=== PATIENT | male | born 1960 | race Caucasian/White ===

== ENCOUNTER 2020-02-24 12:50 | Outpatient (CLI) | payer MEDICARE, MEDICAID ==
[~2020-02-24 12:50] MED LIST: ASPI-1152 PO; AZIT250T13 PO; CARV6.252 PO; DOCU-141 PO; INSU100I26 SQ; INSU100I4 SQ; LEVO25TA9 PO; LEVO750T21 PO; MYCO250C PO; PANT40TA4 PO; PRED5TAB PO; TACR1CAP2 PO; TAMS0.4C34 PO
== END 2020-02-24 23:59 | disposition home health service (06) ==
LOC: WOU 12:50
PROVIDERS: ATTEND Podiatrist Foot & Ankle Surgery
DX: E11.621 Type 2 diabetes mellitus with foot ulcer (principal); L97.413 Non-pressure chronic ulcer of right heel and midfoot with necrosis of muscle; L97.512 Non-pressure chronic ulcer of other part of right foot with fat layer exposed; L97.518 Non-pressure chronic ulcer of other part of right foot with other specified severity; T81.89XD Other complications of procedures, not elsewhere classified, subsequent encounter; E11.42 Type 2 diabetes mellitus with diabetic polyneuropathy; E11.69 Type 2 diabetes mellitus with other specified complication; M86.672 Other chronic osteomyelitis, left ankle and foot; Z89.432 Acquired absence of left foot; Z94.0 Kidney transplant status; Z79.02 Long term (current) use of antithrombotics/antiplatelets; Z79.899 Other long term (current) drug therapy
CPT/HCPCS: 11043

== ENCOUNTER 2020-03-02 12:48 | Outpatient (CLI) | payer MEDICARE, MEDICAID | END 2020-03-02 23:59 | disposition home or self-care (01) | LOC: WOU 12:48 | PROVIDERS: ATTEND Podiatrist Foot & Ankle Surgery | DX: E11.621 Type 2 diabetes mellitus with foot ulcer (principal); L97.512 Non-pressure chronic ulcer of other part of right foot with fat layer exposed; L97.513 Non-pressure chronic ulcer of other part of right foot with necrosis of muscle; L97.413 Non-pressure chronic ulcer of right heel and midfoot with necrosis of muscle; L97.518 Non-pressure chronic ulcer of other part of right foot with other specified severity; T81.89XA Other complications of procedures, not elsewhere classified, initial encounter; E11.42 Type 2 diabetes mellitus with diabetic polyneuropathy; E11.69 Type 2 diabetes mellitus with other specified complication; M86.672 Other chronic osteomyelitis, left ankle and foot; Z94.0 Kidney transplant status; Z89.432 Acquired absence of left foot; Z79.02 Long term (current) use of antithrombotics/antiplatelets | CPT/HCPCS: 11043; 11046; G0463 ==

== ENCOUNTER 2020-03-07 08:28 | Outpatient (CLI) | payer MEDICARE, MEDICAID | END 2020-03-07 23:59 | disposition home or self-care (01) | LOC: RAD 08:28 | PROVIDERS: ATTEND Specialist | DX: R05 Cough (principal); I51.7 Cardiomegaly; I70.0 Atherosclerosis of aorta | CPT/HCPCS: 71045-TC ==

== ENCOUNTER 2020-03-08 12:10 | Outpatient (CLI) | payer MEDICARE, MEDICAID | END 2020-03-08 23:59 | disposition home health service (06) | LOC: WOU 12:10 | PROVIDERS: ATTEND Podiatrist Foot & Ankle Surgery | DX: E11.621 Type 2 diabetes mellitus with foot ulcer (principal); L97.512 Non-pressure chronic ulcer of other part of right foot with fat layer exposed; L97.513 Non-pressure chronic ulcer of other part of right foot with necrosis of muscle; L97.518 Non-pressure chronic ulcer of other part of right foot with other specified severity; L97.413 Non-pressure chronic ulcer of right heel and midfoot with necrosis of muscle; T81.89XA Other complications of procedures, not elsewhere classified, initial encounter; E11.69 Type 2 diabetes mellitus with other specified complication; M86.672 Other chronic osteomyelitis, left ankle and foot; Z89.432 Acquired absence of left foot; Z79.02 Long term (current) use of antithrombotics/antiplatelets; Z79.899 Other long term (current) drug therapy; Z94.0 Kidney transplant status | CPT/HCPCS: 11044; 11047; G0277 ==

== ENCOUNTER 2020-03-16 08:57 | Emergency (ER) | payer MEDICARE, OTHER ==
[~2020-03-16] VITALS: Ht 162.6 cm; Wt 56.2 kg
--- NOTE | 2020-03-16 09:00 | NUR ---
PT SENT FROM WOUND CARE FOR HYPERTENSION EVAL. PT DENIES CHEST PAIN OR ANY DISCOMFORT. PT PLACED ON MONITOR. NOTED HYPERTENSION. AWAITING MD GROVE.
--- NOTE | 2020-03-16 09:14 | NUR ---
DR MORRISSEY AT BEDSIDE FOR EVAL.
--- NOTE | 2020-03-16 09:27 | NUR ---
Manjeet perera in [facility] - 03/16/20 at [address] MORRISSEY AT [facility].
--- NOTE | 2020-03-16 09:27 | NUR ---
IV LINE STARTED BLOOD DRAWN AND SENT TO LAB.
[2020-03-16] MEDS ORDERED: hydrALAZINE HCL IV 20 MG VIAL IV ONE (09:30)
[2020-03-16 09:32] LABS: BASOPHILS # (AUTO) 0.1 /CMM (0.0-0.2); BASOPHILS % (AUTO) 0.7 % (0.0-2.0); EOSINOPHILS % (AUTO) 0.5 % (0.0-6.0); HEMATOCRIT 42 % (39-51); HEMOGLOBIN 13.9 g/dL (13.5-17.5); LYMPHOCYTES % (AUTO) 13.3 % (20.0-44.0); MEAN CORPUSCULAR HGB CONC 33 g/dl (31.0-36.0); MEAN CORPUSCULAR VOLUME 98 fL (80-96); MONOCYTES # (AUTO) 0.6 /CMM (0.1-1.30); MONOCYTES % (AUTO) 7.7 % (2.0-12.0); NEUTROPHILS # (AUTO) 5.7 /CMM (1.8-8.9); NEUTROPHILS % (AUTO) 77.8 % (43.0-81.0); PLATELET COUNT (AUTO) 208 /CMM (150-450); RED BLOOD CELL COUNT(AUTO) 4.32 MIL/uL (4.5-6.0); WHITE BLOOD COUNT (AUTO) 7.4 K/uL (4.3-11.0)
[2020-03-16] MEDS ORDERED: hydrALAZINE HCL IV 20 MG VIAL ONE (09:35)
--- NOTE | 2020-03-16 09:36 | NUR ---
RADIOLOGY AT BEDSIDE FOR CHEST XRAY.
[2020-03-16 09:41] LABS: CALCIUM, SERUM 9.9 mg/dL (8.5-10.1); CARBON DIOXIDE 29 mmol/L (21-32); CHLORIDE 101 mmol/L (98-107); GLUCOSE 171 mg/dL (74-106); POTASSIUM 5.2 mmol/L (3.5-5.1); SODIUM SERUM 136 mmol/L (136-145); UREA NITROGEN, BLOOD 24 mg/dL (7-18)
[2020-03-16 09:47] LABS: ALANINE AMINOTRANSFERASE 18 U/L (12-78); ALBUMIN 3.1 g/dL (3.4-5.0); ALKALINE PHOSPHATASE 81 U/L (46-116); ASPARTATE AMINOTRANSFERASE 27 U/L (15-37); BILIRUBIN,DIRECT 0.1 mg/dL (0.0-0.2); BILIRUBIN,TOTAL 0.4 mg/dL (0.2-1.0); TOTAL PROTEIN, SERUM 7.2 g/dL (6.4-8.2)
[2020-03-16] MEDS ORDERED: METOPROLOL TARTRATE INJ 5 MG/5 ML AMPUL ONE (10:13)
[2020-03-16] MEDS ORDERED: METOPROLOL TARTRATE INJ 5 MG/5 ML AMPUL IV ONE (10:30)
--- NOTE | 2020-03-16 11:13 | NUR ---
Patient discharged to home in stable condition. Written and verbal after care instructions given. Patient verbalizes understanding of instruction.IV removed. Catheter intact and site benign. Pressure and 4x4 applied to site. No bleeding noted.
[2020-03-16 11:14] VITALS: BP 163/96
== END 2020-03-16 11:14 | disposition home or self-care (01) ==
LOC: ER 09:03
DX: E11.621 Type 2 diabetes mellitus with foot ulcer (principal); I10 Essential (primary) hypertension; E78.5 Hyperlipidemia, unspecified; Z94.0 Kidney transplant status; Z95.1 Presence of aortocoronary bypass graft; Z79.4 Long term (current) use of insulin; Z79.82 Long term (current) use of aspirin; Z79.899 Other long term (current) drug therapy
CPT/HCPCS: 36415; 71045; 80048; 80076; 84484; 85025; 96374; 96375; 99285; J0360; J3490

== ENCOUNTER 2020-03-18 11:25 | Outpatient (CLI) | payer MEDICARE, MEDICAID | END 2020-03-18 23:59 | disposition home health service (06) | LOC: WOU 11:25 | PROVIDERS: ATTEND Podiatrist Foot & Ankle Surgery | DX: E11.621 Type 2 diabetes mellitus with foot ulcer (principal); L97.826 Non-pressure chronic ulcer of other part of left lower leg with bone involvement without evidence of necrosis; L97.413 Non-pressure chronic ulcer of right heel and midfoot with necrosis of muscle; L97.515 Non-pressure chronic ulcer of other part of right foot with muscle involvement without evidence of necrosis; L97.513 Non-pressure chronic ulcer of other part of right foot with necrosis of muscle; E11.69 Type 2 diabetes mellitus with other specified complication; E11.42 Type 2 diabetes mellitus with diabetic polyneuropathy; M86.672 Other chronic osteomyelitis, left ankle and foot; Z94.0 Kidney transplant status | CPT/HCPCS: 11043 ==

== ENCOUNTER 2020-03-23 13:55 | Outpatient (CLI) | payer MEDICARE, MEDICAID | END 2020-03-23 23:59 | disposition home or self-care (01) | LOC: WOU 13:55 | PROVIDERS: ATTEND Nurse Practitioner Acute Care | DX: Z45.2 Encounter for adjustment and management of vascular access device (principal); M86.9 Osteomyelitis, unspecified | CPT/HCPCS: 36569; C1751 ==

== ENCOUNTER 2020-03-25 11:45 | Outpatient (CLI) | payer MEDICARE, MEDICAID | END 2020-03-25 23:59 | disposition home health service (06) | LOC: WOU 11:45 | PROVIDERS: ATTEND Podiatrist Foot & Ankle Surgery | DX: E11.621 Type 2 diabetes mellitus with foot ulcer (principal); L97.426 Non-pressure chronic ulcer of left heel and midfoot with bone involvement without evidence of necrosis; L97.413 Non-pressure chronic ulcer of right heel and midfoot with necrosis of muscle; L97.515 Non-pressure chronic ulcer of other part of right foot with muscle involvement without evidence of necrosis; L97.513 Non-pressure chronic ulcer of other part of right foot with necrosis of muscle; E11.42 Type 2 diabetes mellitus with diabetic polyneuropathy; E11.69 Type 2 diabetes mellitus with other specified complication; M86.672 Other chronic osteomyelitis, left ankle and foot; Z94.0 Kidney transplant status; Z79.02 Long term (current) use of antithrombotics/antiplatelets; Z79.899 Other long term (current) drug therapy | CPT/HCPCS: 11043 ==

== ENCOUNTER 2020-04-01 10:35 | Outpatient (CLI) | payer MEDICARE, MEDICAID | END 2020-04-01 23:59 | disposition home health service (06) | LOC: WOU 10:35 | PROVIDERS: ATTEND Podiatrist Foot & Ankle Surgery | DX: E11.621 Type 2 diabetes mellitus with foot ulcer (principal); L97.426 Non-pressure chronic ulcer of left heel and midfoot with bone involvement without evidence of necrosis; L97.413 Non-pressure chronic ulcer of right heel and midfoot with necrosis of muscle; L97.515 Non-pressure chronic ulcer of other part of right foot with muscle involvement without evidence of necrosis; L97.513 Non-pressure chronic ulcer of other part of right foot with necrosis of muscle; E11.42 Type 2 diabetes mellitus with diabetic polyneuropathy; E11.69 Type 2 diabetes mellitus with other specified complication; M86.672 Other chronic osteomyelitis, left ankle and foot; Z89.432 Acquired absence of left foot; Z94.0 Kidney transplant status; Z79.899 Other long term (current) drug therapy; Z79.02 Long term (current) use of antithrombotics/antiplatelets | CPT/HCPCS: 11042; 11043 ==

== ENCOUNTER 2020-04-08 10:50 | Outpatient (CLI) | payer MEDICARE, MEDICAID ==
[~2020-04-08 10:50] MED LIST changes: -ASPI-1152 PO; +ASPI-1420 PO
[2020-04-08] MEDS ORDERED: COLLAGENASE 5 GM TUBE UD TP ONE (11:40)
[2020-04-08] MEDS ORDERED: GENTAMICIN 0.1% CREAM 15 GM TUBE ONE (11:40)
== END 2020-04-08 23:59 | disposition home health service (06) ==
LOC: WOU 10:50
PROVIDERS: ATTEND Podiatrist Foot & Ankle Surgery
DX: E11.621 Type 2 diabetes mellitus with foot ulcer (principal); L97.426 Non-pressure chronic ulcer of left heel and midfoot with bone involvement without evidence of necrosis; L97.413 Non-pressure chronic ulcer of right heel and midfoot with necrosis of muscle; L97.515 Non-pressure chronic ulcer of other part of right foot with muscle involvement without evidence of necrosis; L97.513 Non-pressure chronic ulcer of other part of right foot with necrosis of muscle; E11.69 Type 2 diabetes mellitus with other specified complication; M86.672 Other chronic osteomyelitis, left ankle and foot; M86.671 Other chronic osteomyelitis, right ankle and foot; E11.649 Type 2 diabetes mellitus with hypoglycemia without coma; Z94.0 Kidney transplant status; Z89.432 Acquired absence of left foot; Z79.02 Long term (current) use of antithrombotics/antiplatelets
CPT/HCPCS: 11043

== ENCOUNTER 2020-04-15 09:50 | Outpatient (CLI) | payer MEDICARE, MEDICAID ==
[~2020-04-15 09:50] MED LIST changes: -PANT40TA4 PO; +PANT40TA49 PO
[2020-04-15] MEDS ORDERED: GENTAMICIN 0.1% CREAM 15 GM TUBE ONE (10:44)
[2020-06-09] MEDS ORDERED: AMLO5TAB4 PO (09:32)
[2020-06-09] MEDS ORDERED: HYDR-4077 PO (09:32)
== END 2020-04-15 23:59 | disposition home health service (06) ==
LOC: WOU 09:50
PROVIDERS: ATTEND Podiatrist Foot & Ankle Surgery
DX: E11.621 Type 2 diabetes mellitus with foot ulcer (principal); L97.426 Non-pressure chronic ulcer of left heel and midfoot with bone involvement without evidence of necrosis; L97.412 Non-pressure chronic ulcer of right heel and midfoot with fat layer exposed; L97.512 Non-pressure chronic ulcer of other part of right foot with fat layer exposed; L97.516 Non-pressure chronic ulcer of other part of right foot with bone involvement without evidence of necrosis; E11.69 Type 2 diabetes mellitus with other specified complication; M86.672 Other chronic osteomyelitis, left ankle and foot; Z94.0 Kidney transplant status; Z89.432 Acquired absence of left foot; Z79.899 Other long term (current) drug therapy
CPT/HCPCS: 11042; 11044; 11047

== ENCOUNTER 2020-04-22 10:40 | Outpatient (CLI) | payer MEDICARE, MEDICAID ==
[~2020-04-22 10:40] MED LIST changes: +PANT40TA4 PO; -PANT40TA49 PO
[2020-04-22] MEDS ORDERED: GENTAMICIN 0.1% CREAM 15 GM TUBE ONE ×2 (11:38→11:39)
== END 2020-04-22 23:59 | disposition home health service (06) ==
LOC: WOU 10:40
PROVIDERS: ATTEND Podiatrist Foot & Ankle Surgery
DX: E11.621 Type 2 diabetes mellitus with foot ulcer (principal); I96 Gangrene, not elsewhere classified; L97.426 Non-pressure chronic ulcer of left heel and midfoot with bone involvement without evidence of necrosis; L97.415 Non-pressure chronic ulcer of right heel and midfoot with muscle involvement without evidence of necrosis; L97.515 Non-pressure chronic ulcer of other part of right foot with muscle involvement without evidence of necrosis; L97.516 Non-pressure chronic ulcer of other part of right foot with bone involvement without evidence of necrosis; E11.42 Type 2 diabetes mellitus with diabetic polyneuropathy; E11.69 Type 2 diabetes mellitus with other specified complication; M86.672 Other chronic osteomyelitis, left ankle and foot; Z94.0 Kidney transplant status; Z89.432 Acquired absence of left foot; Z79.02 Long term (current) use of antithrombotics/antiplatelets
CPT/HCPCS: 11043

== ENCOUNTER 2020-04-29 10:40 | Outpatient (CLI) | payer MEDICARE, MEDICAID ==
[2020-04-29] MEDS ORDERED: GENTAMICIN 0.1% CREAM 15 GM TUBE ONE (11:38)
== END 2020-04-29 23:59 | disposition home health service (06) ==
LOC: WOU 10:40
PROVIDERS: ATTEND Podiatrist Foot & Ankle Surgery
DX: E11.621 Type 2 diabetes mellitus with foot ulcer (principal); L97.426 Non-pressure chronic ulcer of left heel and midfoot with bone involvement without evidence of necrosis; L97.415 Non-pressure chronic ulcer of right heel and midfoot with muscle involvement without evidence of necrosis; L97.515 Non-pressure chronic ulcer of other part of right foot with muscle involvement without evidence of necrosis; L97.516 Non-pressure chronic ulcer of other part of right foot with bone involvement without evidence of necrosis; E11.42 Type 2 diabetes mellitus with diabetic polyneuropathy; E11.69 Type 2 diabetes mellitus with other specified complication; M86.672 Other chronic osteomyelitis, left ankle and foot; E11.649 Type 2 diabetes mellitus with hypoglycemia without coma; Z94.0 Kidney transplant status; Z89.432 Acquired absence of left foot; Z79.02 Long term (current) use of antithrombotics/antiplatelets
CPT/HCPCS: 11043

== ENCOUNTER 2020-05-06 10:17 | Outpatient (CLI) | payer MEDICARE, MEDICAID ==
[2020-05-06] MEDS ORDERED: LIDOCAINE SOLN 4% 50 ML BOTTLE ONE (10:44)
[2020-05-06] MEDS ORDERED: GENTAMICIN 0.1% CREAM 15 GM TUBE ONE (11:26)
== END 2020-05-06 23:59 | disposition home health service (06) ==
LOC: WOU 10:17
PROVIDERS: ATTEND Podiatrist Foot & Ankle Surgery
DX: E11.621 Type 2 diabetes mellitus with foot ulcer (principal); L97.426 Non-pressure chronic ulcer of left heel and midfoot with bone involvement without evidence of necrosis; L97.515 Non-pressure chronic ulcer of other part of right foot with muscle involvement without evidence of necrosis; L97.516 Non-pressure chronic ulcer of other part of right foot with bone involvement without evidence of necrosis; E11.42 Type 2 diabetes mellitus with diabetic polyneuropathy; E11.69 Type 2 diabetes mellitus with other specified complication; M86.672 Other chronic osteomyelitis, left ankle and foot; Z94.0 Kidney transplant status; Z79.02 Long term (current) use of antithrombotics/antiplatelets
CPT/HCPCS: 11043

== ENCOUNTER 2020-05-13 08:50 | Outpatient (CLI) | payer MEDICARE, MEDICAID ==
[2020-05-13] MEDS ORDERED: GENTAMICIN 0.1% CREAM 15 GM TUBE ONE (09:19)
== END 2020-05-13 23:59 | disposition home health service (06) ==
LOC: WOU 08:50
PROVIDERS: ATTEND Podiatrist Foot & Ankle Surgery
DX: E11.621 Type 2 diabetes mellitus with foot ulcer (principal); L97.426 Non-pressure chronic ulcer of left heel and midfoot with bone involvement without evidence of necrosis; L97.415 Non-pressure chronic ulcer of right heel and midfoot with muscle involvement without evidence of necrosis; L97.515 Non-pressure chronic ulcer of other part of right foot with muscle involvement without evidence of necrosis; L97.516 Non-pressure chronic ulcer of other part of right foot with bone involvement without evidence of necrosis; E11.42 Type 2 diabetes mellitus with diabetic polyneuropathy; E11.69 Type 2 diabetes mellitus with other specified complication; M86.672 Other chronic osteomyelitis, left ankle and foot; Z94.0 Kidney transplant status; Z79.02 Long term (current) use of antithrombotics/antiplatelets; Z79.899 Other long term (current) drug therapy
CPT/HCPCS: 11043

== ENCOUNTER 2020-05-20 09:25 | Outpatient (CLI) | payer MEDICARE, MEDICAID ==
[~2020-05-20 09:25] MED LIST changes: -PANT40TA4 PO; +PANT40TA49 PO
[2020-05-20] MEDS ORDERED: LIDOCAINE SOLN 4% 50 ML BOTTLE ONE (09:38)
== END 2020-05-20 23:59 | disposition home health service (06) ==
LOC: WOU 09:25
PROVIDERS: ATTEND Podiatrist Foot & Ankle Surgery
DX: E11.621 Type 2 diabetes mellitus with foot ulcer (principal); L97.426 Non-pressure chronic ulcer of left heel and midfoot with bone involvement without evidence of necrosis; L97.415 Non-pressure chronic ulcer of right heel and midfoot with muscle involvement without evidence of necrosis; L97.512 Non-pressure chronic ulcer of other part of right foot with fat layer exposed; L97.515 Non-pressure chronic ulcer of other part of right foot with muscle involvement without evidence of necrosis; L97.516 Non-pressure chronic ulcer of other part of right foot with bone involvement without evidence of necrosis; E11.69 Type 2 diabetes mellitus with other specified complication; Z89.432 Acquired absence of left foot; M86.672 Other chronic osteomyelitis, left ankle and foot; Z94.0 Kidney transplant status; Z79.02 Long term (current) use of antithrombotics/antiplatelets
CPT/HCPCS: 11042; 11043; 11044

== ENCOUNTER 2020-06-01 09:00 | Outpatient (CLI) | payer MEDICARE, MEDICAID | END 2020-06-01 23:59 | disposition home or self-care (01) | DX: Z01.818 Encounter for other preprocedural examination (principal); Z20.828 Contact with and (suspected) exposure to other viral communicable diseases; E11.52 Type 2 diabetes mellitus with diabetic peripheral angiopathy with gangrene; E11.69 Type 2 diabetes mellitus with other specified complication; I96 Gangrene, not elsewhere classified; M86.672 Other chronic osteomyelitis, left ankle and foot | CPT/HCPCS: 36415; 80053; 83036; 84134; 85025; 85730; 93005; C9803; U0003 ==

== ENCOUNTER 2020-06-03 09:30 | Outpatient (CLI) | payer MEDICARE, MEDICAID ==
[2020-06-03] MEDS ORDERED: LIDOCAINE SOLN 4% 50 ML BOTTLE ONE (09:47)
[2020-06-03] MEDS ORDERED: MUPIROCIN 2% CREAM 15 GM TUBE TP ONE (09:57)
[2020-06-03] MEDS ORDERED: GENTAMICIN 0.1% CREAM 15 GM TUBE ONE (09:57)
[2020-06-09] MEDS ORDERED: HYDR-4077 PO (09:32)
[2020-06-09] MEDS ORDERED: AMLO5TAB4 PO (09:32)
== END 2020-06-03 23:59 | disposition home health service (06) ==
LOC: WOU 09:30
PROVIDERS: ATTEND Podiatrist Foot & Ankle Surgery
DX: E11.621 Type 2 diabetes mellitus with foot ulcer (principal); L97.426 Non-pressure chronic ulcer of left heel and midfoot with bone involvement without evidence of necrosis; L97.415 Non-pressure chronic ulcer of right heel and midfoot with muscle involvement without evidence of necrosis; L97.515 Non-pressure chronic ulcer of other part of right foot with muscle involvement without evidence of necrosis; L97.516 Non-pressure chronic ulcer of other part of right foot with bone involvement without evidence of necrosis; E11.42 Type 2 diabetes mellitus with diabetic polyneuropathy; E11.69 Type 2 diabetes mellitus with other specified complication; M86.672 Other chronic osteomyelitis, left ankle and foot; Z94.0 Kidney transplant status; Z89.432 Acquired absence of left foot; Z79.02 Long term (current) use of antithrombotics/antiplatelets
CPT/HCPCS: 11043

== ENCOUNTER 2020-06-07 05:59 | Inpatient (IN) | payer MEDICARE, OTHER ==
[~2020-06-07] VITALS: Ht 162.6 cm; Wt 59.0 kg
[2020-06-07] MEDS ORDERED: ANESTHESIA TRAY IN PYXIS 1 EA TRAY MC ONE (07:13)
[2020-06-07] MEDS ORDERED: BACITRACIN 50000 UNITS/VIAL ONE (07:16)
[2020-06-07] MEDS ORDERED: LIDOCAINE 1% INJ 50 ML MDV IJ ONE (07:16)
[2020-06-07] MEDS ORDERED: BUPIVACAINE 0.5 % PF 150 MG/30 ML VIAL ONE (07:16)
--- NOTE | 2020-06-07 08:35 | NUR ---
MS RN ADMITTING NOTE PATIENT CAME BY MOHIT FROM OR. PATIENT TRANSFERRED TO OUR BED. PATIENT IN BED RESTING COMFORTABLY. PATIENT IN NO ACUTE DISTRESS. NO SOB NOTED. PATIENT BREATHING IS EVEN AND UNLABORED. PATIENT SYSTOLIC BP IN 170S-180S. INFORMED MARIS ROMMEL. PATIENT STATES NO PAIN AT THIS TIME. PATIENT BED IS LOCKED AND IN LOWEST POSITION. CALL LIGHT WITHIN REACH. INFORMED MARIS ROMMEL OF PATIENTS ARRIVAL AND PER MD WILL FOLLOW UP WITH ORDERS. WILL CONTINUE TO MONITOR.
[2020-06-07 09:00] VITALS: BP 195/112
[2020-06-07] MEDS ORDERED: INSU3INS9 SQ (09:02)
[2020-06-07] MEDS ORDERED: CLOP75TA15 PO (09:02)
[2020-06-07] MEDS ORDERED: ONDANSETRON HCL/PF 4 MG/2 ML VIAL IVP PRN (10:00)
[2020-06-07] MEDS ORDERED: ACETAMINOPHEN 325 MG TABLET PO PRN (10:00)
[2020-06-07] MEDS ORDERED: Z GUARD REMEDY 2 OZ OINT TP PRN (10:00)
[2020-06-07] MEDS ORDERED: hydrALAZINE HCL 25 MG TABLET PO PRN (10:00)
[2020-06-07] MEDS ORDERED: DOCUSATE SODIUM 100 MG CAPSULE PO PRN (10:00)
[2020-06-07] MEDS ORDERED: AMLODIPINE BESYLATE 5 MG TABLET PO SCH (10:00)
--- NOTE | 2020-06-07 10:05 | NUR ---
MS RN NOTE PATIENT SEEN AND EVALUATED BY MARIS CARNEY. PER MARIS BACON ORDER FOR MILD SLIDING SCALE ACHS. AND MARIS IS AWARE THAT DR. WALKER IS TO SEE PATIENT FOR SURGERY ONCE CLEARED AND PER MARIS POSSIBLE SURGERY TOMORROW.
[2020-06-07] MEDS: AMLODIPINE BESYLATE 10 MG TABLET PO SCH (10:19)
[2020-06-07] MEDS ORDERED: DEXTROSE 50%-WATER 50 ML DISP.SYRIN IV PRN (10:30)
--- NOTE | 2020-06-07 11:00 | NUR ---
MS RN NOTE PER MARIS HOLLOWAY ROUNDING M[employer]IM[employer] TECHNICIAN FOR PATIENT.
[2020-06-07] MEDS: BLOOD SUGAR DIAGNOSTIC 1 EACH STRIP IN SCH ×3 (12:14→22:25)
[2020-06-07] MEDS: INSULIN REGULAR, HUMAN 100 UNIT/ML 3 ML VIAL SQ PRN ×2 (12:16→22:41)
--- NOTE | 2020-06-07 12:19 | NUR ---
MS RN NOTE PATIENT BLOOD SUGAR 156. HELD REGULAR INSULIN 2 UNITS PER SLIDING SCALE PRN DUE TO PATIENT RECEIVING INSULIN HUMALOG 5 UNITS SCHEDULED AT 1200.
[2020-06-07] MEDS: INSULIN LISPRO/ASPART 100 UNIT/ML CARTRIDGE SQ SCH ×2 (12:22→16:58)
[2020-06-07] MEDS: hydrALAZINE HCL 50 MG TABLET PO SCH ×2 (12:23→16:37)
[2020-06-07] MEDS: NITROGLYCERIN 30 GM TUBE TP SCH ×2 (12:59→22:50)
[2020-06-07 16:00] VITALS: BP 109/73
[2020-06-07] MEDS: MYCOPHENOLATE MOFETIL 250 MG CAPSULE PO SCH (16:38)
[2020-06-07] MEDS: predniSONE 5 MG TABLET PO SCH (16:38)
[2020-06-07] MEDS: TACROLIMUS ANHYDROUS 0.5 MG CAPSULE PO SCH (16:38)
--- NOTE | 2020-06-07 16:58 | NUR ---
MS RN NOTE PATIENT BLOOD SUGAR 118. NO REGULAR INSULIN GIVEN PER PROTOCOL. PATIENT REFUSED 1730 5 UNITS INSULIN HUMALOG/NOVALOG.
[2020-06-07] MEDS ORDERED: TACROLIMUS ANHYDROUS 1 MG CAPSULE PO SCH (17:00)
--- NOTE | 2020-06-07 18:40 | NUR ---
MS RN CLOSING NOTE PATIENT IN BED RESTING COMFORTABLY. PATIENT IN NO ACUTE DISTRESS. NO SOB NOTED. PATIENT BREATHING IS EVEN AND UNLABORED. PATIENT STATES NO PAIN AT THIS TIME. PATIENT BED ALARM IS ON. PATIENT SAFETY PRECAUTIONS IN PLACE. PATIENT AWARE NPO AFTER MIDNIGHT IN CASE POSSIBLE DEBRIDEMENT IN OR TOMORROW. PATIENT BED IS LOCKED AND IN LOWEST POSITION. CALL LIGHT WITHIN REACH. WILL ENDORSE CARE TO PM SHIFT FOR TAMRA.
--- NOTE | 2020-06-07 19:45 | NUR ---
MSRN FULLY AWAKE, SUKHWINDER LOWER EXT DRESSINGS CHANGED. NO DRAINAGE SEEN.. PATIENT FOR POSSIBLE DEBRIDEMENT BY DR THOMSON OF SUKHWINDER LOWER EXT WOUNDS. TAMAZIGHT SPEAKING LIMITED JAPANESE, ALL NEEDS ATTENDED. DENIES ANY PAIN OR FURTHER DISCOMFORTS. BOTH LOWER EXT ELEVATED ON PILLOWS PER PATIENTS' COMFORT. CONTINUED.
[2020-06-07 20:00] VITALS: BP_SYST 104; BP_SYST 134; BP_DIAS 68; BP_DIAS 85
--- NOTE | 2020-06-07 21:30 | NUR ---
MSRN LOWER EXT DRESSING DONE. DENIES PAIN.
[2020-06-07] MEDS: CARVEDILOL 6.25 MG TABLET PO SCH (22:26)
--- NOTE | 2020-06-07 22:40 | NUR ---
MSRN BS 225 COVERAGE PER SLIDING SCALE GIVEN. SNACKS PROVIDED. NO OTHER NEEDS MADE.
[2020-06-08] MEDS: INSULIN REGULAR, HUMAN 100 UNIT/ML 3 ML VIAL SQ PRN ×4 (06:44→21:39)
--- NOTE | 2020-06-08 06:45 | NUR ---
MSRN BS 205. INSULIN ADMINISTERED ORDERED. PT NOT ON SCHED FOR DEBRIDEMENT IN OR. WILL FOLLOW UP. DIET RESUMED. TYLENOL PO GIVEN FOR LOWER BACK PAIN.
[2020-06-08] MEDS: INSULIN LISPRO/ASPART 100 UNIT/ML CARTRIDGE SQ SCH ×3 (06:47→17:55)
[2020-06-08] MEDS: BLOOD SUGAR DIAGNOSTIC 1 EACH STRIP IN SCH ×4 (06:49→21:37)
[2020-06-08] MEDS: LEVOTHYROXINE SODIUM 25 MCG TABLET PO SCH (06:54)
[2020-06-08] MEDS: PANTOPRAZOLE 40 MG TABLET.DR PO SCH (06:54)
[2020-06-08 06:59] VITALS: BP 130/82
[2020-06-08 07:52] LABS: BASOPHILS % (AUTO) 0.4 % (0.0-2.0); EOSINOPHILS % (AUTO) 0.4 % (0.0-6.0); HEMATOCRIT 44 % (39-51); HEMOGLOBIN 14.6 g/dL (13.5-17.5); LYMPHOCYTES # (AUTO) 0.8 /CMM (0.8-4.8); MEAN CORPUSCULAR HGB CONC 33 g/dl (31.0-36.0); MEAN CORPUSCULAR VOLUME 95 fL (80-96); MONOCYTES # (AUTO) 0.6 /CMM (0.1-1.30); MONOCYTES % (AUTO) 8.3 % (2.0-12.0); NEUTROPHILS # (AUTO) 5.5 /CMM (1.8-8.9); NEUTROPHILS % (AUTO) 78.9 % (43.0-81.0); PLATELET COUNT (AUTO) 220 /CMM (150-450); RED BLOOD CELL COUNT(AUTO) 4.68 MIL/uL (4.5-6.0); WHITE BLOOD COUNT (AUTO) 6.9 K/uL (4.3-11.0)
[2020-06-08 08:00] VITALS: BP 104/65
[2020-06-08] MEDS: ASPIRIN EC 81 MG TABLET.DR PO SCH (08:23)
[2020-06-08] MEDS: TACROLIMUS ANHYDROUS 0.5 MG CAPSULE PO SCH ×2 (08:23→17:41)
[2020-06-08] MEDS: MYCOPHENOLATE MOFETIL 250 MG CAPSULE PO SCH ×2 (08:23→17:40)
[2020-06-08] MEDS: CARVEDILOL 6.25 MG TABLET PO SCH ×2 (08:24→21:38)
[2020-06-08] MEDS: AMLODIPINE BESYLATE 10 MG TABLET PO SCH (08:24)
[2020-06-08] MEDS: hydrALAZINE HCL 50 MG TABLET PO SCH ×3 (08:24→17:00)
[2020-06-08] MEDS: predniSONE 5 MG TABLET PO SCH ×2 (08:26→17:40)
[2020-06-08] MEDS: INSULIN GLARGINE, 100 UNIT/ML CARTRIDGE SQ SCH (08:28)
[2020-06-08] MEDS: NITROGLYCERIN 30 GM TUBE TP SCH ×2 (08:30→21:40)
[2020-06-08 09:01] LABS: CALCIUM, SERUM 9.3 mg/dL (8.5-10.1); CREATININE 1.1 mg/dL (0.6-1.3); MAGNESIUM 2.1 mg/dL (1.8-2.4); PHOSPHORUS 2.9 mg/dL (2.5-4.9); POTASSIUM 4.4 mmol/L (3.5-5.1)
[2020-06-08 16:00] VITALS: BP 107/71
[2020-06-08] MEDS ORDERED: SILVER SULFADIAZINE CREAM 25 GM TUBE TP SCH (17:00)
--- NOTE | 2020-06-08 18:46 | NUR ---
rn notes patient on room air, no sob noted, only speaks central african. blood sugar checked and insulin coverage given. Plan is to have surgery tomorrow. bed at the lowest setting, call light within reach, side rails up x2.
[2020-06-08 19:00] VITALS: BP 110/62
--- NOTE | 2020-06-08 19:26 | NUR ---
MS/RN OPENING NOTES: RECEIVED PT IN BED, A/OX3-4. VERBALLY RESPONSIVE AND ABLE TO MAKE NEEDS KNOWN. ETHIOPIAN SPEAKING BUT JOSE D TO UNDERSTAND MINIMAL MARTIN[place]QUAIS. NO SOB NOTED, SATURATING WELL ON ROOM AIR. NO C/O PAIN AT THIS TIME. PT HAS A SURGERY SCHEDULED TOMORROW MORNING WITH DR. GAMEZ: RIGHT FOOT HALLUX AMPUTATION. LEFT FOOT DEBRIDEMENT AND APPLICATION OF ALLOGRAFT. IV ON THE LEFT HAND #20G INTACT AND PATENT, FLUSHING WELL, SL. WILL BE NPO STARTING MIDNIGHT. SAFETY MEASURES IN PLACE. BED IN LOW, LOCKED POSITION WITH SR UPX2. CALL LIGHT WITHIN REACH. WILL CONTINUE TO MONITOR ACCORDINGLY.
[2020-06-08 20:00] VITALS: BP 110/62
[2020-06-09] MEDS: BLOOD SUGAR DIAGNOSTIC 1 EACH STRIP IN SCH (06:38)
[2020-06-09] MEDS: INSULIN REGULAR, HUMAN 100 UNIT/ML 3 ML VIAL SQ PRN (06:38)
--- NOTE | 2020-06-09 06:56 | NUR ---
MS/RN CLOSING NOTES: PT REMAINS IN BED, A/OX3-4. VERBALLY RESPONSIVE AND ABLE TO MAKE NEEDS KNOWN. NO SOB NOTED, SATURATING WELL ON ROOM AIR. NO C/O PAIN AT THIS TIME. PT HAS A SURGERY SCHEDULED IN THE MORNING WITH DR. GAMEZ: RIGHT FOOT HALLUX AMPUTATION. LEFT FOOT DEBRIDEMENT AND APPLICATION OF ALLOGRAFT. CONSENTS ARE SIGNED AND IN THE CHART. PREOP CHECKLIST DONE. IV ON THE LEFT HAND #20G INTACT AND PATENT, FLUSHING WELL, SL. MAINTAINED NPO STATUS STARTING MIDNIGHT. BS CHECK AT 0600 IS 206. NO COVERAGE GIVEN SINCE PT IS NPO AND WILL BE GOING TO SURGERY. SAFETY MEASURES IN PLACE. BED IN LOW, LOCKED POSITION WITH SR UPX2. CALL LIGHT WITHIN REACH. ALL DUE MEDS GIVEN ORDERED. ALL NURSING NEEDS MET AND RENDERED. WILL ENDORSE TO DAY SHIFT FOR TAMRA.
--- NOTE | 2020-06-09 07:10 | NUR ---
MS RN NOTES ENDORSED BY EXHIBITS COORDINATOR RN, PATIENT WAS LEAVING UNIT FOR SURGERY. WILL AWAIT FOR POST-OP.
[2020-06-09] MEDS ORDERED: ANESTHESIA TRAY IN PYXIS 1 EA TRAY MC ONE (07:11)
[2020-06-09] MEDS ORDERED: BUPIVACAINE 0.5 % PF 150 MG/30 ML VIAL ONE (07:11)
[2020-06-09] MEDS ORDERED: LIDOCAINE HCL/PF 1% 30 ML SDV ONE (07:11)
[2020-06-09] MEDS ORDERED: BACITRACIN 50000 UNITS/VIAL ONE ×2 (07:12→08:05)
[2020-06-09] MEDS ORDERED: MIDAZOLAM HCL 2 MG/2ML VIAL ONE (07:18)
[2020-06-09] MEDS ORDERED: FENTANYL PF 100MCG/2ML AMPUL ONE (07:18)
[2020-06-09] MEDS: INSULIN LISPRO/ASPART 100 UNIT/ML CARTRIDGE SQ SCH (07:30)
[2020-06-09] MEDS: PANTOPRAZOLE 40 MG TABLET.DR PO SCH (07:30)
[2020-06-09] MEDS: LEVOTHYROXINE SODIUM 25 MCG TABLET PO SCH (07:30)
[2020-06-09 07:31] LABS: BASOPHILS % (AUTO) 0.3 % (0.0-2.0); CALCIUM, SERUM 9.5 mg/dL (8.5-10.1); CREATININE 1.2 mg/dL (0.6-1.3); EOSINOPHILS % (AUTO) 0.5 % (0.0-6.0); HEMATOCRIT 46 % (39-51); HEMOGLOBIN 15.4 g/dL (13.5-17.5); LYMPHOCYTES # (AUTO) 0.8 /CMM (0.8-4.8); LYMPHOCYTES % (AUTO) 12.4 % (20.0-44.0); MAGNESIUM 2.2 mg/dL (1.8-2.4); MEAN CORPUSCULAR HGB CONC 33 g/dl (31.0-36.0); MEAN CORPUSCULAR VOLUME 95 fL (80-96); MONOCYTES # (AUTO) 0.5 /CMM (0.1-1.30); MONOCYTES % (AUTO) 7.7 % (2.0-12.0); NEUTROPHILS # (AUTO) 5.3 /CMM (1.8-8.9); NEUTROPHILS % (AUTO) 79.1 % (43.0-81.0); PHOSPHORUS 2.6 mg/dL (2.5-4.9); PLATELET COUNT (AUTO) 234 /CMM (150-450); POTASSIUM 5.1 mmol/L (3.5-5.1); RED BLOOD CELL COUNT(AUTO) 4.87 MIL/uL (4.5-6.0); WHITE BLOOD COUNT (AUTO) 6.7 K/uL (4.3-11.0)
[2020-06-09] MEDS ORDERED: VANCOMYCIN 1 GM VIAL ONE (07:50)
[2020-06-09] MEDS: TACROLIMUS ANHYDROUS 0.5 MG CAPSULE PO SCH ×2 (09:00→09:49)
[2020-06-09] MEDS: INSULIN GLARGINE, 100 UNIT/ML CARTRIDGE SQ SCH (09:00)
[2020-06-09] MEDS: NITROGLYCERIN 30 GM TUBE TP SCH (09:00)
[2020-06-09] MEDS: predniSONE 5 MG TABLET PO SCH ×2 (09:00→09:48)
[2020-06-09] MEDS: MYCOPHENOLATE MOFETIL 250 MG CAPSULE PO SCH ×2 (09:00→09:48)
[2020-06-09] MEDS: CARVEDILOL 6.25 MG TABLET PO SCH (09:00)
[2020-06-09] MEDS: hydrALAZINE HCL 50 MG TABLET PO SCH ×2 (09:00→09:49)
[2020-06-09] MEDS: ASPIRIN EC 81 MG TABLET.DR PO SCH ×2 (09:00→09:48)
[2020-06-09] MEDS: AMLODIPINE BESYLATE 10 MG TABLET PO SCH ×2 (09:00→09:48)
--- NOTE | 2020-06-09 09:11 | NUR ---
MS RN NOTES PATIENT STILL IN SURGERY, MORNING MEDICATIONS NON-ADMINISTERED.
[2020-06-09] MEDS ORDERED: HYDR-4077 PO (09:32)
[2020-06-09] MEDS ORDERED: AMLO5TAB4 PO (09:32)
[2020-06-09 09:35] VITALS: BP 137/81
--- NOTE | 2020-06-09 09:35 | NUR ---
MS RN NOTES PATIENT CAME BACK FROM SURGERY, WILL CONTINUE TO MONITOR.
[2020-06-09 09:49] VITALS: BP 149/79
--- NOTE | 2020-06-09 12:30 | NUR ---
MS SENIOR TRAINING AND DEVELOPMENT REP NOTES PATIENT ALERT AND ORIENTED X 3, SINGAPOREAN SPEAKING. ON ROOM AIR WITH NO SIGNS OF RESPIRATORY DISTRESS AT THIS TIME WITH EVEN NON-LABORED BREATHING AND NO SOB NOTED. VITAL SIGNS STABLE. IV ACCESS REMOVED, CATHETER TIP INTACT AND APPLIED PRESSURE TO SITE. ID BAND REMOVED. SKIN ASSESSMENT DONE, HOWEVER BILATERAL FEET WERE COVERED DUE TO SURGERY SO NO PHOTOS DRESSING INTACT AND NO LEAKAGE PRESENT. PATIENT PRESENTS WITH NO PAIN OR DISCOMFORT AT THIS TIME. ACCOUNTED FOR ALL BELONGINGS. PATIENT LEFT UNIT VIA WHEELCHAIR AND LEFT HOSPITAL IN PRIVATE CAR. Addendum: 06/09/20 at 1338 by FAWAD VITALE RN MS SENIOR TRAINING AND DEVELOPMENT REP NOTES PATIENT ALERT AND ORIENTED X 3, SINGAPOREAN SPEAKING. ON ROOM AIR WITH NO SIGNS OF RESPIRATORY DISTRESS AT THIS TIME WITH EVEN NON-LABORED BREATHING AND NO SOB NOTED. CALLED PREFERRED PHARMACY [facility] , MEDICATIONS ARE AVAILABLE FOR PICKUP. VITAL SIGNS STABLE. IV ACCESS REMOVED, CATHETER TIP INTACT AND APPLIED PRESSURE TO SITE. ID BAND REMOVED. SKIN ASSESSMENT DONE, HOWEVER BILATERAL FEET WERE COVERED DUE TO SURGERY SO NO PHOTOS DRESSING INTACT AND NO LEAKAGE PRESENT. PATIENT PRESENTS WITH NO PAIN OR DISCOMFORT AT THIS TIME. ACCOUNTED FOR ALL BELONGINGS. PATIENT LEFT UNIT VIA WHEELCHAIR AND LEFT HOSPITAL IN PRIVATE CAR.
== END 2020-06-09 12:30 | disposition home or self-care (01) | DRG 240 ==
LOC: DS 05:59 → MED 06:00
PROVIDERS: ADMIT Nurse Practitioner Acute Care; ATTEND Nurse Practitioner Acute Care
PROC: 0Y6M0Z9 Detachment at Right Foot, Partial 1st Ray, Open Approach (ICD-10-PCS; principal; 2020-06-09)
PROC: 0KBW0ZZ Excision of Left Foot Muscle, Open Approach (ICD-10-PCS; 2020-06-09)
PROC: 0HRNXK3 Replacement of Left Foot Skin with Nonautologous Tissue Substitute, Full Thickness, External Approach (ICD-10-PCS; 2020-06-09)
DX: E11.52 Type 2 diabetes mellitus with diabetic peripheral angiopathy with gangrene (principal); I96 Gangrene, not elsewhere classified; Z94.0 Kidney transplant status; M86.672 Other chronic osteomyelitis, left ankle and foot; I10 Essential (primary) hypertension; Z95.1 Presence of aortocoronary bypass graft; I25.10 Atherosclerotic heart disease of native coronary artery without angina pectoris; I25.2 Old myocardial infarction; Z89.422 Acquired absence of other left toe(s); I16.0 Hypertensive urgency; E11.621 Type 2 diabetes mellitus with foot ulcer; E11.40 Type 2 diabetes mellitus with diabetic neuropathy, unspecified; E11.69 Type 2 diabetes mellitus with other specified complication; L97.529 Non-pressure chronic ulcer of other part of left foot with unspecified severity
CPT/HCPCS: 36415; 71045-TC; 80048-TC; 80061-TC; 82962-TC; 83735-TC; 84100-TC; 85025-TC; 85730-TC; 87070-TC; 87081-TC; 87186-TC; 93307-TC; A6209; A6403; G0378; J0690; J1815; J2250; J2704; J3010; J3370; J3490; J7507; J7512; J7517; Q4100

== ENCOUNTER 2020-06-17 08:00 | Outpatient (CLI) | payer MEDICARE, OTHER ==
[~2020-06-17 08:00] MED LIST changes: +AMLO5TAB4 PO; -AZIT250T13 PO; +CLOP75TA15 PO; +HYDR-4077 PO; -INSU100I26 SQ; +INSU3INS9 SQ; -LEVO750T21 PO; -TAMS0.4C34 PO
[2020-06-17] MEDS ORDERED: LIDOCAINE SOLN 4% 50 ML BOTTLE ONE (08:13)
[2020-06-17] MEDS ORDERED: MUPIROCIN 2% CREAM 15 GM TUBE TP ONE (08:51)
[2020-06-17] MEDS ORDERED: GENTAMICIN 0.1% CREAM 15 GM TUBE ONE (08:51)
== END 2020-06-17 23:59 | disposition home health service (06) ==
LOC: WOU 08:00
PROVIDERS: ATTEND Podiatrist Foot & Ankle Surgery
DX: E11.621 Type 2 diabetes mellitus with foot ulcer (principal); L97.426 Non-pressure chronic ulcer of left heel and midfoot with bone involvement without evidence of necrosis; L97.412 Non-pressure chronic ulcer of right heel and midfoot with fat layer exposed; L97.512 Non-pressure chronic ulcer of other part of right foot with fat layer exposed; L97.515 Non-pressure chronic ulcer of other part of right foot with muscle involvement without evidence of necrosis; E11.42 Type 2 diabetes mellitus with diabetic polyneuropathy; E11.69 Type 2 diabetes mellitus with other specified complication; M86.672 Other chronic osteomyelitis, left ankle and foot; Z94.0 Kidney transplant status; Z89.432 Acquired absence of left foot; Z89.411 Acquired absence of right great toe
CPT/HCPCS: 11042; 11043

== ENCOUNTER 2020-06-24 08:00 | Outpatient (CLI) | payer MEDICARE, OTHER | END 2020-06-24 23:59 | disposition home health service (06) | LOC: WOU 08:00 | PROVIDERS: ATTEND Podiatrist Foot & Ankle Surgery | DX: E11.621 Type 2 diabetes mellitus with foot ulcer (principal); L97.426 Non-pressure chronic ulcer of left heel and midfoot with bone involvement without evidence of necrosis; L97.412 Non-pressure chronic ulcer of right heel and midfoot with fat layer exposed; L97.512 Non-pressure chronic ulcer of other part of right foot with fat layer exposed; L97.515 Non-pressure chronic ulcer of other part of right foot with muscle involvement without evidence of necrosis; E11.69 Type 2 diabetes mellitus with other specified complication; M86.672 Other chronic osteomyelitis, left ankle and foot; E11.42 Type 2 diabetes mellitus with diabetic polyneuropathy; Z94.0 Kidney transplant status; Z89.432 Acquired absence of left foot; Z79.899 Other long term (current) drug therapy | CPT/HCPCS: 11043 ==

== ENCOUNTER 2020-07-01 08:00 | Outpatient (CLI) | payer MEDICARE, OTHER | END 2020-07-01 23:59 | disposition home health service (06) | LOC: WOU 08:00 | PROVIDERS: ATTEND Podiatrist Foot & Ankle Surgery | DX: E11.621 Type 2 diabetes mellitus with foot ulcer (principal); L97.426 Non-pressure chronic ulcer of left heel and midfoot with bone involvement without evidence of necrosis; L97.515 Non-pressure chronic ulcer of other part of right foot with muscle involvement without evidence of necrosis; L97.518 Non-pressure chronic ulcer of other part of right foot with other specified severity; E11.42 Type 2 diabetes mellitus with diabetic polyneuropathy; E11.69 Type 2 diabetes mellitus with other specified complication; M86.672 Other chronic osteomyelitis, left ankle and foot; Z89.432 Acquired absence of left foot; Z94.0 Kidney transplant status | CPT/HCPCS: 11043 ==

== ENCOUNTER 2020-07-08 08:00 | Outpatient (CLI) | payer MEDICARE, OTHER | END 2020-07-08 23:59 | disposition home health service (06) | LOC: WOU 08:00 | PROVIDERS: ATTEND Podiatrist Foot & Ankle Surgery | DX: E11.621 Type 2 diabetes mellitus with foot ulcer (principal); L97.426 Non-pressure chronic ulcer of left heel and midfoot with bone involvement without evidence of necrosis; L97.515 Non-pressure chronic ulcer of other part of right foot with muscle involvement without evidence of necrosis; E11.42 Type 2 diabetes mellitus with diabetic polyneuropathy; E11.69 Type 2 diabetes mellitus with other specified complication; M86.672 Other chronic osteomyelitis, left ankle and foot; Z94.0 Kidney transplant status; Z89.432 Acquired absence of left foot; Z79.02 Long term (current) use of antithrombotics/antiplatelets | CPT/HCPCS: 11043 ==

== ENCOUNTER 2020-07-14 09:03 | Outpatient (CLI) | payer MEDICARE, OTHER ==
[2020-07-14 10:39] LABS: BILIRUBIN,TOTAL 0.5 mg/dL (0.2-1.0); CREATININE 1.2 mg/dL (0.6-1.3); POTASSIUM 4.6 mmol/L (3.5-5.1); TOTAL PROTEIN, SERUM 6.7 g/dL (6.4-8.2)
== END 2020-07-14 23:59 | disposition home or self-care (01) ==
LOC: MSC 09:03
PROVIDERS: ATTEND Internal Medicine
DX: E11.621 Type 2 diabetes mellitus with foot ulcer (principal); L97.509 Non-pressure chronic ulcer of other part of unspecified foot with unspecified severity; Z79.4 Long term (current) use of insulin; I10 Essential (primary) hypertension; Z94.0 Kidney transplant status; Z79.899 Other long term (current) drug therapy
CPT/HCPCS: 36415; 80053; 80197; 83735; G0463

== ENCOUNTER 2020-07-15 08:00 | Outpatient (CLI) | payer MEDICARE, OTHER ==
[2020-07-15] MEDS ORDERED: LIDOCAINE SOLN 4% 50 ML BOTTLE ONE (08:36)
== END 2020-07-15 23:59 | disposition home health service (06) ==
LOC: WOU 08:00
PROVIDERS: ATTEND Podiatrist Foot & Ankle Surgery
DX: E11.621 Type 2 diabetes mellitus with foot ulcer (principal); L97.426 Non-pressure chronic ulcer of left heel and midfoot with bone involvement without evidence of necrosis; L97.515 Non-pressure chronic ulcer of other part of right foot with muscle involvement without evidence of necrosis; E11.42 Type 2 diabetes mellitus with diabetic polyneuropathy; E11.69 Type 2 diabetes mellitus with other specified complication; M86.672 Other chronic osteomyelitis, left ankle and foot; Z94.0 Kidney transplant status; Z89.432 Acquired absence of left foot; Z79.02 Long term (current) use of antithrombotics/antiplatelets
CPT/HCPCS: 11043

== ENCOUNTER 2020-07-22 08:00 | Outpatient (CLI) | payer MEDICARE, OTHER | END 2020-07-22 23:59 | disposition home health service (06) | LOC: WOU 08:00 | PROVIDERS: ATTEND Podiatrist Foot & Ankle Surgery | DX: E11.621 Type 2 diabetes mellitus with foot ulcer (principal); L97.426 Non-pressure chronic ulcer of left heel and midfoot with bone involvement without evidence of necrosis; L97.515 Non-pressure chronic ulcer of other part of right foot with muscle involvement without evidence of necrosis; E11.42 Type 2 diabetes mellitus with diabetic polyneuropathy; E11.69 Type 2 diabetes mellitus with other specified complication; M86.672 Other chronic osteomyelitis, left ankle and foot; Z79.02 Long term (current) use of antithrombotics/antiplatelets; Z94.0 Kidney transplant status; Z89.432 Acquired absence of left foot | CPT/HCPCS: 11043 ==

== ENCOUNTER 2020-08-09 08:00 | Outpatient (CLI) | payer MEDICARE, OTHER ==
[2020-08-09] MEDS ORDERED: LIDOCAINE SOLN 4% 50 ML BOTTLE ONE (08:07)
== END 2020-08-09 23:59 | disposition home health service (06) ==
LOC: WOU 08:00
PROVIDERS: ATTEND Podiatrist Foot & Ankle Surgery
DX: E11.621 Type 2 diabetes mellitus with foot ulcer (principal); L97.426 Non-pressure chronic ulcer of left heel and midfoot with bone involvement without evidence of necrosis; L97.515 Non-pressure chronic ulcer of other part of right foot with muscle involvement without evidence of necrosis; E11.42 Type 2 diabetes mellitus with diabetic polyneuropathy; E11.69 Type 2 diabetes mellitus with other specified complication; M86.672 Other chronic osteomyelitis, left ankle and foot; Z94.0 Kidney transplant status; Z79.02 Long term (current) use of antithrombotics/antiplatelets
CPT/HCPCS: 11043; 87070-TC; 87186-TC

== ENCOUNTER 2020-08-16 08:00 | Outpatient (CLI) | payer MEDICARE, OTHER ==
[2020-08-16] MEDS ORDERED: LIDOCAINE SOLN 4% 50 ML BOTTLE ONE (08:36)
[2020-08-16] MEDS ORDERED: COLLAGENASE 5 GM TUBE UD TP ONE (09:19)
== END 2020-08-16 23:59 | disposition home health service (06) ==
LOC: WOU 08:00
PROVIDERS: ATTEND Podiatrist Foot & Ankle Surgery
DX: E11.621 Type 2 diabetes mellitus with foot ulcer (principal); L97.426 Non-pressure chronic ulcer of left heel and midfoot with bone involvement without evidence of necrosis; L97.515 Non-pressure chronic ulcer of other part of right foot with muscle involvement without evidence of necrosis; E11.42 Type 2 diabetes mellitus with diabetic polyneuropathy; E11.69 Type 2 diabetes mellitus with other specified complication; M86.672 Other chronic osteomyelitis, left ankle and foot; Z79.02 Long term (current) use of antithrombotics/antiplatelets; Z94.0 Kidney transplant status; Z89.432 Acquired absence of left foot
CPT/HCPCS: 11043; 11046; A6253

== ENCOUNTER 2020-08-18 09:30 | Outpatient (CLI) | payer MEDICARE, OTHER | END 2020-08-18 23:59 | disposition home or self-care (01) | LOC: MSC 09:30 | PROVIDERS: ATTEND Internal Medicine | DX: I10 Essential (primary) hypertension (principal); E11.621 Type 2 diabetes mellitus with foot ulcer; L97.509 Non-pressure chronic ulcer of other part of unspecified foot with unspecified severity; Z79.4 Long term (current) use of insulin; Z89.432 Acquired absence of left foot; Z94.0 Kidney transplant status; Z79.899 Other long term (current) drug therapy ==

== ENCOUNTER 2020-08-23 08:05 | Outpatient (CLI) | payer MEDICARE, OTHER ==
[2020-08-23] MEDS ORDERED: COLLAGENASE 5 GM TUBE UD TP ONE (08:52)
== END 2020-08-23 23:59 | disposition home health service (06) ==
LOC: WOU 08:05
PROVIDERS: ATTEND Podiatrist Foot & Ankle Surgery
DX: E11.621 Type 2 diabetes mellitus with foot ulcer (principal); L97.426 Non-pressure chronic ulcer of left heel and midfoot with bone involvement without evidence of necrosis; L97.428 Non-pressure chronic ulcer of left heel and midfoot with other specified severity; L97.515 Non-pressure chronic ulcer of other part of right foot with muscle involvement without evidence of necrosis; L97.518 Non-pressure chronic ulcer of other part of right foot with other specified severity; E11.42 Type 2 diabetes mellitus with diabetic polyneuropathy; E11.69 Type 2 diabetes mellitus with other specified complication; M86.672 Other chronic osteomyelitis, left ankle and foot; Z94.0 Kidney transplant status; Z89.432 Acquired absence of left foot; Z79.02 Long term (current) use of antithrombotics/antiplatelets; Z79.52 Long term (current) use of systemic steroids
CPT/HCPCS: 11043; 11046; A6253; 11044; 11047

== ENCOUNTER 2020-09-06 08:00 | Outpatient (CLI) | payer MEDICARE, OTHER ==
[2020-09-06] MEDS ORDERED: LIDOCAINE SOLN 4% 50 ML BOTTLE ONE (08:17)
[2020-09-06] MEDS ORDERED: COLLAGENASE 5 GM TUBE UD TP ONE (08:52)
== END 2020-09-06 23:59 | disposition home health service (06) ==
LOC: WOU 08:00
PROVIDERS: ATTEND Podiatrist Foot & Ankle Surgery
DX: E11.621 Type 2 diabetes mellitus with foot ulcer (principal); L97.426 Non-pressure chronic ulcer of left heel and midfoot with bone involvement without evidence of necrosis; L97.515 Non-pressure chronic ulcer of other part of right foot with muscle involvement without evidence of necrosis; E11.42 Type 2 diabetes mellitus with diabetic polyneuropathy; E11.69 Type 2 diabetes mellitus with other specified complication; M86.672 Other chronic osteomyelitis, left ankle and foot; Z89.432 Acquired absence of left foot; Z94.0 Kidney transplant status; Z79.02 Long term (current) use of antithrombotics/antiplatelets
CPT/HCPCS: 11043; 11046; A6253

== ENCOUNTER 2020-09-13 08:00 | Outpatient (CLI) | payer MEDICARE, OTHER ==
[2020-09-13] MEDS ORDERED: LIDOCAINE SOLN 4% 50 ML BOTTLE ONE (08:24)
[2020-09-13] MEDS ORDERED: COLLAGENASE 5 GM TUBE UD TP ONE ×2 (09:06)
== END 2020-09-13 23:59 | disposition home health service (06) ==
LOC: WOU 08:00
PROVIDERS: ATTEND Podiatrist Foot & Ankle Surgery
DX: E11.621 Type 2 diabetes mellitus with foot ulcer (principal); L97.426 Non-pressure chronic ulcer of left heel and midfoot with bone involvement without evidence of necrosis; L97.512 Non-pressure chronic ulcer of other part of right foot with fat layer exposed; E11.42 Type 2 diabetes mellitus with diabetic polyneuropathy; E11.69 Type 2 diabetes mellitus with other specified complication; M86.672 Other chronic osteomyelitis, left ankle and foot; Z89.432 Acquired absence of left foot; Z94.0 Kidney transplant status; Z79.02 Long term (current) use of antithrombotics/antiplatelets
CPT/HCPCS: 11043; 11046; A6253

== ENCOUNTER 2020-09-20 08:00 | Outpatient (CLI) | payer MEDICARE, OTHER | END 2020-09-20 23:59 | disposition home health service (06) | LOC: WOU 08:00 | PROVIDERS: ATTEND Podiatrist Foot & Ankle Surgery | DX: E11.621 Type 2 diabetes mellitus with foot ulcer (principal); L97.426 Non-pressure chronic ulcer of left heel and midfoot with bone involvement without evidence of necrosis; L97.515 Non-pressure chronic ulcer of other part of right foot with muscle involvement without evidence of necrosis; L97.518 Non-pressure chronic ulcer of other part of right foot with other specified severity; E11.42 Type 2 diabetes mellitus with diabetic polyneuropathy; E11.69 Type 2 diabetes mellitus with other specified complication; M86.672 Other chronic osteomyelitis, left ankle and foot; Z94.0 Kidney transplant status; Z89.432 Acquired absence of left foot; Z79.02 Long term (current) use of antithrombotics/antiplatelets; Z79.52 Long term (current) use of systemic steroids | CPT/HCPCS: 11044; 11047; 87070 ×2; 87075 ×2; 87186 ×2; A6253 ==

== ENCOUNTER 2020-09-27 08:10 | Outpatient (CLI) | payer MEDICARE, OTHER | END 2020-09-27 23:59 | disposition home health service (06) | LOC: WOU 08:10 | PROVIDERS: ATTEND Podiatrist Foot & Ankle Surgery | DX: E11.621 Type 2 diabetes mellitus with foot ulcer (principal); L97.426 Non-pressure chronic ulcer of left heel and midfoot with bone involvement without evidence of necrosis; L97.515 Non-pressure chronic ulcer of other part of right foot with muscle involvement without evidence of necrosis; L97.518 Non-pressure chronic ulcer of other part of right foot with other specified severity; E11.42 Type 2 diabetes mellitus with diabetic polyneuropathy; E11.69 Type 2 diabetes mellitus with other specified complication; M86.672 Other chronic osteomyelitis, left ankle and foot; Z79.02 Long term (current) use of antithrombotics/antiplatelets; Z79.52 Long term (current) use of systemic steroids; Z94.0 Kidney transplant status; Z89.432 Acquired absence of left foot | CPT/HCPCS: 11044; 11047; A6253 ==